=== PATIENT | male | born 1945 | race Caucasian/White ===

== ENCOUNTER 2016-06-01 20:41 | Inpatient (IN) | payer MEDICARE, OTHER ==
--- NOTE | ~2016-06-01 | EKG ---
PATIENT: KENNEDI AU UNIT #: [id number] Ventricular Rate: 60 BPM Atrial Rate: 68 BPM QRS Duration: 184 ms Q-T Interval: 500 ms QTC Calculation(Bezet): 500 ms Calculated R [place]: -78 degrees Calculated T [place]: 85 degrees Diagnosis Line: Electronic ventricular pacemaker Diagnosis Line: When compared with ECG of 25-APR-2012 12:22, Diagnosis Line: Wide QRS rhythm has replaced Electronic Diagnosis Line: ventricular pacemaker Diagnosis Line: Confirmed by JOHN LOPEZ MD ([id number]) on 06/03/2016 Diagnosis Line: 11:13:01 AM INTERPRETING MD: JESSICA BAEZ
--- NOTE | ~2016-06-01 | EKG ---
PATIENT: KENNEDI AU UNIT #: [id number] Ventricular Rate: 60 BPM Atrial Rate: 90 BPM QRS Duration: 192 ms Q-T Interval: 502 ms QTC Calculation(Bezet): 502 ms Calculated R [place]: -65 degrees Calculated T [place]: 114 degrees Diagnosis Line: Electronic ventricular pacemaker Diagnosis Line: When compared with ECG of 01-JUN-2016 20:19, Diagnosis Line: (unconfirmed) Diagnosis Line: No significant change was found Diagnosis Line: Confirmed by JOHN LOPEZ MD ([id number]) on 06/03/2016 Diagnosis Line: 6:20:37 PM INTERPRETING MD: JESSICA BAEZ
--- NOTE | ~2016-06-01 | EKG ---
PATIENT: KENNEDI AU UNIT #: [id number] Ventricular Rate: 64 BPM Atrial Rate: 93 BPM QRS Duration: 190 ms Q-T Interval: 486 ms QTC Calculation(Bezet): 501 ms Calculated R [place]: -78 degrees Calculated T [place]: 99 degrees Diagnosis Line: Electronic ventricular pacemaker Diagnosis Line: Left axis deviation Diagnosis Line: Abnormal ECG Diagnosis Line: When compared with ECG of 02-JUN-2016 13:06, Diagnosis Line: (unconfirmed) Diagnosis Line: No significant change was found Diagnosis Line: Confirmed by WALLY KRISHNA MD ([id number]) on 06/05/2016 Diagnosis Line: 5:49:48 PM INTERPRETING MD: TOMI BAEZ
--- NOTE | ~2016-06-01 | HP ---
Unit #: [id number] #: [id number] Patient: KENNEDI AU [id number] [address] [place], [place] [address] [id number] MR#: [id number] NAME: KENNEDI AU ROOM: 57612 Age: 70 Sex: M Admission Date: 06/02/2016 : 1945 Attending Physician: Ruth Ann Collins M.D. Primary Care Physician: Jasmin Kahn M.D. HISTORY AND PHYSICAL CHIEF COMPLAINT Intractable nausea, vomiting, diarrhea with metabolic acidosis and acute kidney injury along with accelerated hypertension. HISTORY OF PRESENT ILLNESS This 70-year-old male with CAD and normal LV function status post permanent pacemaker, hypertension, AODM, is admitted for diarrhea. The patient was in his usual state of health until three days prior to admission when he developed nonbloody diarrhea along with nausea, vomiting and generalized abdominal discomfort and burning. The patient has not been able to take down his medicines for the past couple of days. The patient denies true chest pain with the above, although has been experiencing perhaps some increased shortness of breath. He presented to this emergency department last evening with a blood pressure of 188/73, acute kidney injury and metabolic acidosis. In the ER, he was bolused with normal saline, given 4 mg of Zofran, 20 mg of IV Bentyl along with aspirin. Cardiac enzymes were drawn and were indeterminate, although the patient denies chest pain. The patient has been admitted similarly to this facility for diarrhea and acute kidney injury. In March, he underwent colonoscopy and multiple polyps removed including a 3 cm large polyp with pathology showing tubular adenoma. PAST MEDICAL HISTORY 1. CAD status post three vessel CABG in 1999 after a PCI and stent 1997. The last Cardiolite stress test, 2011, showed prior apical and inferior wall infarcts but no april-infarct ischemia. Ejection fraction was 55%. 2. History of AFib/flutter for which the patient underwent cardioversion in the past and finally required a permanent pacemaker for high-degree AV block. The patient takes Eliquis. 3. Hypertension. 4. AODM x13 years. 5. Hyperlipidemia. 6. Previous EGD revealing gastritis. 7. Colonoscopy 03/2016 revealing multiple polyps which were removed. 8. Admissions for acute kidney injury with nausea, vomiting, diarrhea and metabolic acidosis. 9. Right inguinal hernia repair. 10. Cholecystectomy. SOCIAL HISTORY Unit #: [id number] #: [id number] Patient: KENNEDI AU The patient lives with his and two children, lifelong nonsmoker, seldom drinks alcohol. FAMILY HISTORY Hypertension, CAD, malignancy. ALLERGIES Penicillin and codeine. HOME MEDICATIONS 1. Eliquis 5 mg b.i.d. 2. Aspirin 81 mg daily. 3. Neurontin 300 mg b.i.d. 4. Glucotrol XL 10 mg b.i.d. 5. Imdur 60 mg daily. 6. Prinivil 5 mg daily. 7. Glucophage 1,000 mg b.i.d. 8. Toprol XL 100 mg daily. 9. Zantac 150 mg b.i.d. 10. Zocor 40 mg q.h.s. 11. Januvia 100 mg daily. Again, the patient has been unable to keep down his medicines for the past couple of days. REVIEW OF SYSTEMS Nausea, vomiting, diarrhea, generalized abdominal discomfort and burning, CAD, above-mentioned surgeries, AFib/flutter, hypertension, AODM, hyperlipidemia, polyps removed. All other systems were reviewed and are negative. PHYSICAL EXAMINATION GENERAL APPEARANCE: A somewhat ill-appearing, pale, 70-year-old male. VITAL SIGNS: Temperature 98.9. Pulse 61. Respirations 29. Blood pressure 188/73. O2 saturation 99% on room air. HEENT: Eyes: PERRLA. Extraocular muscles are intact. Pharynx is benign. NECK: Supple without adenopathy or thyromegaly. CHEST: Clear. CARDIAC: Normal S1, S2. Soft systolic murmur. ABDOMEN: Bowel sounds are present. Mild generalized abdominal tenderness without rebound, guarding. No hepatosplenomegaly or masses. EXTREMITIES: Without cyanosis, clubbing or edema. Pedal pulses are present but diminished. No ulcers on the feet. NEUROLOGIC: The patient is awake, alert, oriented. Cranial nerves are intact. Equal strength throughout. DIAGNOSTIC STUDIES LABORATORY: Hematocrit 46.3, WBC count 14.7, normal platelet count. SMA-12: Glucose 349, BUN 54, creatinine 1.9 up from a BUN of 21, creatinine of 1.4 03/11/2016, CO2 13, anion gap 18. Initial troponin 0.1. Second troponin 0.14. Urinalysis: Trace protein, positive glucose. CARDIOVASCULAR: EKG shows a paced ventricular rhythm, rate 60. ASSESSMENT 1. Intractable nausea, vomiting, diarrhea with similar admissions in the past. 2. Metabolic acidosis likely multifactorial secondary to diarrhea, Unit #: [id number] #: [id number] Patient: KENNEDI AU Glucophage and acute kidney injury. 3. Accelerated hypertension, unable to keep down home medicines. 4. Acute on chronic kidney disease. 5. CAD status post three vessel CABG with normal ejection fraction and indeterminate troponin, although without definite chest pain. 6. Hyperlipidemia. PLAN 1. Stool cultures. 2. IV fluids with bicarb. Check ABG. 3. Sliding scale insulin and hold oral hyperglycemia. 4. Blood pressure control. 5. Proton pump inhibitor. 6. Nitro paste, aspirin, continue usual cardiac medications and repeat Cardiac enzymes. 7. SCDs for DVT prophylaxis. Dictated by Alisa Andersen/lacey TD: 06/02/2016 07:19 JOB #: [id number] HISTORY AND PHYSICAL X Ruth Ann Collins MD X HISTORY AND PHYSICAL
--- NOTE | ~2016-06-01 | CO ---
Unit #: [id number] #: [id number] Patient: KENNEDI SCHMIDT [id number] [address] [place], [place] [address] [id number] MR#: [id number] NAME: KENNEDI SCHMIDT ROOM: 317 Age: 70 Sex: M Admission Date: 06/02/2016 : 1945 Attending Physician: Mignon Cash M.D. Primary Care Physician: Jasmin Kahn M.D. Consultation Date: 06/02/2016 CONSULTATION REPORT REASON FOR CONSULTATION Elevated troponin. HISTORY OF PRESENT ILLNESS This is a 70-year-old white male with known history of having coronary artery disease, previous CABG back in 1999, prior to that had some stents. Had a stress test back in 2011 that did not show any ischemia, ejection fraction 55%. Has a history of atrial fibrillation/atrial flutter, on Eliquis, hypertension, diabetic, has a pacemaker. He came to the emergency room with persistent nausea, vomiting, diarrhea and abdominal pain. He has been having these symptoms worsening for about two to there days. He has had similar episodes in the past. He presented to the hospital this past March. Had a colonoscopy and Dr. Diamond removed a polyp. Possibly some gastroenteritis. Patient states he has been unable to hold down any of his medications for a couple of days and blood sugars have been running high. He denies any chest pain, pain in his neck, bilateral jaws, shoulders, arms or elbow. He denies any palpitations. No dizziness, presyncope or syncope. No increased lower extremity edema. He denies any cough, fever or chills. He did have some slight shortness of breath with the nausea, vomiting, diarrhea which he said that was a little unusual but denies paroxysmal nocturnal dyspnea or orthopnea. In the emergency room, the patient's blood pressure was 188/73, heart rate 61, respirations 29, temperature 98.9, O2 sats 99% on room air. The patient's EKG shows ventricular paced rhythm, underlying appears to be atrial fib. Patient's initial labs - WBC 14.7, glucose of 349, BUN 54, creatinine 1.9. Initial troponin 0.1, second troponin was 0.14, then 0.42 this morning with a percentage of MB 6.0. The patient has been admitted with intractable nausea, vomiting or diarrhea with similar admissions in the past. Cardiology has been asked to assist with evaluation and management due to the elevated troponin. The patient was started on IV fluids, kept NPO. He did have an amp of sodium bicarb. On his ABGs, his pH is 7.320 with a pCO2 of 33.9. The patient did have one amp of sodium bicarb added to his fluids. Patient also given Zofran and morphine p.r.n. for pain and given a dose of IV Protonix and IV Reglan and a dose of Bentyl IM. Patient with an elevated troponin and was given aspirin 325 p.o. and started on nitro paste. Cardiology consult to assist with evaluation and management. PAST MEDICAL HISTORY 1. Previous FL, status post PCI and stent in 1997. In 1999 had three vessel coronary artery bypass graft. 2. Last Lexiscan Cardiolite stress test 10/22/11 revealed prior apical and mid inferior wall FL, medium size. No april-infarction. Unit #: [id number] #: [id number] Patient: KENNEDI SCHMIDT Reversible ischemia with ejection fraction of 55%. 3. 10/22/11 2D echo - LVEF is greater than 55%, mild mitral regurgitation. 4. History of atrial fibrillation/atrial flutter, history of DC cardioversion, on Eliquis. 5. Hypertension. 6. Hyperlipidemia. 7. Diabetes mellitus type 2. 8. Permanent pacemaker. 9. Smoker. 10. Active with [facility], Dr. Patel. PAST SURGICAL HISTORY 1. Permanent pacemaker. 2. Three vessel coronary artery bypass graft in 1999. Prior to that, in 1997 had a PCI and stent, details unavailable. 3. Hernia repair. 4. Cholecystectomy. 5. Colonoscopy with a polypectomy 03/2016. Also had hemoclips placed at the time of the colonoscopy. 6. EGD 2011 showed distal esophagitis and mild gastritis. 7. Right inguinal hernia repair. HOME MEDICATIONS 1. Eliquis 5 mg p.o. twice daily. 2. Aspirin 81 mg p.o. daily. 3. Neurontin 300 mg p.o. twice daily. 4. Rocaltrol XL 10 mg p.o. twice daily. 5. Imdur 60 mg, one tablet daily. 6. Prinivil 5 mg p.o. daily. 7. Glucophage 1000 mg p.o. twice daily. 8. Toprol-XL 100 mg p.o. daily. 9. Zantac 150 mg p.o. twice daily. 10. Zocor 40 mg p.o. q. h.s. 11. Januvia 100 mg p.o. daily. ALLERGIES Penicillin and codeine. SOCIAL HISTORY The patient lives with his spouse and two children. He has been a lifelong nonsmoker. No alcohol or illicit drug abuse. FAMILY HISTORY Both his parents had a pacemaker. They in their 70s of unknown causes. Siblings were in generally well health. REVIEW OF SYSTEMS See details in HPI. PHYSICAL EXAMINATION GENERAL: On exam, Mr. Schmidt is a 70-year-old white male in no acute respiratory distress. He is awake, alert and oriented. VITAL SIGNS: Blood pressure is 154/72, heart rate 66, respirations 16, temperature 97.9, O2 sats 100% on room air. NECK: Trachea midline. No thyromegaly or lymphadenopathy. Normal carotid upstrokes. No jugular venous distention. HEART: S1, S2. Regular rate and rhythm. No clicks, murmurs or rubs. Unit #: [id number] #: [id number] Patient: KENNEDI SCHMIDT LUNGS: Bilaterally clear throughout. No wheezes, rales or rhonchi. ABDOMEN: Slightly obese. Tender in lower quadrant areas. Positive bowel sounds present. EXTREMITIES: Pedal pulses are palpable. No pedal edema. DIAGNOSTIC STUDIES LABORATORY: ABGs - pH is 7.320, pCO2 33.9, pO2 86.5, and O2 sats 95.6 on room air. Glucose on admission was 349, BUN 54, creatinine 1.9. Today's BUN is 49, creatinine 1.6, eGFR is 45.4, sodium 134, potassium 4.3, chloride 105, CO2 19, calcium 8.4, total protein 6.8, albumin 3.8, bili total 0.6, AST 22, ALT 18, alkaline phos. is 62. Amylase is 29, lipase is 29. WBC 13.3, hemoglobin 13.9, hematocrit 42.3 and platelets 228. Initial cardiac enzymes - CK MB is 7.0, troponin is 0.10. CK MB 8.5, troponin 0.14. Repeat cardiac enzymes - CK total 177, MB 10.6, percentage of MB 6.0 and troponin 0.28. Urinalysis - trace protein, 250 glucose, 0.2 urobilinogen. Stool specimen pending. IMAGING: Chest x-ray is pending. CARDIOVASCULAR: EKG shows ventricular paced rhythm, underlying A-fib, left ventricular hypertrophy. IMPRESSION 1. Nausea, vomiting, diarrhea, abdominal pain, questionable etiology. 2. Acute kidney injury. 3. Elevated troponin peaked at 0.42. 4. History of coronary artery disease: Previous coronary artery bypass graft back in 1999, latest stress test back in 2011. No reversible ischemia on the stress test with ejection fraction 55%. 5. History of atrial fib/flutter, on Eliquis. 6. Hypertension. 7. Diabetes mellitus type 2. 8. Hyperlipidemia. 9. Permanent pacemaker. 10. Left ventricular ejection fraction of greater than 55% on 2D echo 10/2011. Mild mitral regurgitation. PLAN 1. Cardiology consult to assist with evaluating. Patient had a troponin of 0.42. On exam, there are no signs or symptoms of acute congestive heart failure or unstable angina. Patient's elevated troponin may be secondary to his gastroenteritis and acute kidney injury. Will repeat if it trends down. Will repeat a stress test since it has been four years since he had a stress test. The patient is active with Dr. Patel with [facility]. He says he has been stable. He has him on Eliquis for his A-fib. Patient has been restarted back on his cardiac medications which include the aspirin, Imdur, Toprol XL and statin. We are holding his lisinopril due to patient having acute kidney injury. May be restarted before he is discharged if his creatinine goes back to baseline. 2. The patient is on IV fluids and D5 half normal with one amp of bicarb at 125 mL/hour. Obtain a fasting lipid profile and TSH in the Unit #: [id number] #: [id number] Patient: KENNEDI SCHMIDT morning and evaluate. 3. On exam, there are no signs or symptoms of acute congestive heart failure. 4. Awaiting stool specimen results. 5. Further recommendations pending per Dr. Ceron. Besides statin, nitrate, aspirin, and beta jarred, patient is on Eliquis for anticoagulation. There is no evidence, signs or symptoms of any bleeding. Hemoglobin and hematocrit stable. Thank you very much for allowing us to assist in his care. Dictated by... Hortensia Mccracken A.P.R.N. for Alisa Valentine/gosia TD: 06/03/2016 10:20 JOB #: [id number] CONSULTATION REPORT X Hortensia Mccracken APRN X CONSULTATION REPORT
--- NOTE | ~2016-06-01 | TH ---
Unit #: [id number] #: [id number] Patient: KENNEDI AU [id number] [address] [address] [id number] I MR#: [id number] NAME: KENNEDI AU : 1945 SEX: M STUDY DATE/TIME: 06/03/2016 UNIT: C3A PCU ROOM: [facility] STUDY DESCRIPTION: Lexiscan Cardiolite stress Attending Physician: Mignon Cash M.D. Primary Care Physician: Jasmin Kahn M.D. CARDIOLOGY REPORT EXAM Lexiscan Cardiolite stress test, nuclear portion. PROCEDURE Using technetium-99m labeled Cardiolite, rest and stress SPECT images were obtained. Multiple SPECT images were obtained in various views including horizontal and vertical long axis and short axis views of the left ventricle. Images were obtained by gated SPECT method. Patient was administered 11.62 mCi of Cardiolite at rest. Patient was administered 32.4 mCi of Cardiolite after Lexiscan infusion was completed. On the stress images, there is a small area of mild decreased isotope activity in the inferoapical area. The rest images also show a small area of decreased isotope activity inferoapically. Comparing rest and stress images, there is no stress induced ischemia noted. There is a small area of predominantly fixed defect seen inferoapically consistent with old myocardial infarction. The left ventricular ejection fraction is calculated to be 59%. There is septal hypokinesis seen. CONCLUSIONS 1. No obvious stress induced ischemia noted. 2. There is a small area of predominantly fixed defect seen inferoapically, most likely consistent with old myocardial infarction. 3. The left ventricular ejection fraction is calculated to be 59%. 4. There is septal hypokinesis seen. 5. The left ventricular cavity is mildly dilated, both at rest and post stress. 6. Clinical correlation is requested. Dictated by... Alisa Valentine TD: 06/03/2016 15:42 JOB #: [id number] Unit #: [id number] #: [id number] Patient: KENNEDI AU CARDIOLOGY REPORT X Melissa Ceron MD <ELECTRONICALLY SIGNED> 10/23/16 1428 CARDIOLOGY REPORT
[~2016-06-01 20:41] MED LIST: ASPIRIN EC81 M1 PO; ASPIRIN PO; BAYER ASPIRIN325 M1 PO; BENTYL20 MG PO; CENTRUM PO; ELIQUIS5 MG PO; FISH OIL 1,0001 CAP PO; FISH OIL 1,0001 EAC1 PO; FLAGYL PO; GABAPENTIN300 M2 PO; GLIPIZIDE10 MG PO; GLUCOPHAGE500 MG PO; GLUCOTROL PO; GLUCOTROL XL10 MG PO; GLUCOTROL10 MG PO; HYDROCODON-ACE1 EAC7 PO; IMDUR PO; IMDUR-ER60 M1 PO; IMDUR-ER60 MG PO; JANUVIA PO; JANUVIA50 MG PO; LEVOFLOXACIN500 MG PO; LISINOPRIL PO; LISINOPRIL5 MG PO; LOPID600 MG PO; LORTAB 7.5-5001 TAB PO; LORTAB 7.51 TAB 7.5/ PO; METFORMIN HCL1000 M1 PO; METFORMIN PO; METOPROL PO; METOPROLOL SUC100 MG PO; MULTI VITAMIN1 EACH PO; NAPROSYN125 MG/5 M PO; PLAVIX PO; PROBIOTIC250 MG PO; REQUIP1 MG PO; SIMVASTATIN40 MG PO; ST. JOSEPH ASP325 MG PO; TOPROL XL PO; TOPROL XL100 MG PO; ULTRAM PO; VITAMIN C PO; VITAMIN C1000 M1 PO; VITAMIN C1000 M2 PO; ZANTAC150 MG PO; ZESTRIL5 MG PO; ZOCOR PO; ZOFRANODT PO; ZOLOFT PO
[2016-06-01 21:09] LABS: BASOPHIL% 0.2 % (0-2.5); HEMATOCRIT 46.3 % (38.0-50.0); HEMOGLOBIN 15.2 gm/dL (13.0-16.0); LYMPHOCYTE# 0.7 X10e3 (1.0-3.5); LYMPHOCYTE% 5.1 % (17.0-45.0); MEAN CELL VOLUME 89.5 FL (83-96); MEAN CORPUSCULAR HEMOGLOBIN 29.3 PG (28-34); MEAN CORPUSCULAR HGB CONC 32.8 g/dL (30-36); MEAN PLATELET VOLUME 7.9 FL (6.5-11.5); MONOCYTE# 0.4 X10e3 (0-1.0); MONOCYTE% 2.6 % (3.0-12.0); NEUTROPHIL# 13.6 X10e3 (1.5-7.1); NEUTROPHIL% 92.1 % (40-75); PLATELET COUNT 289 X10e3 (140-420); RED BLOOD COUNT 5.17 X10e (3.90-5.60); RED CELL DISTRIBUTION WIDTH 14.1 % (11.0-15.5); WHITE BLOOD COUNT 14.7 X10e3 (4.0-10.5)
[2016-06-01 21:10] LABS: DIFF IND NO
[2016-06-01 21:19] LABS: POC - TROPONIN 0.1 ng/mL (<=0.05)
[2016-06-01 21:36] LABS: ALBUMIN SERUM 4.8 g/dL (3.5-5.0); BILIRUBIN, DIRECT 0.2 mg/dL (0.0-0.2); BILIRUBIN,INDIRECT 0.7 mg/dL (0.0-0.9); BILIRUBIN,TOTAL 0.9 mg/dL (0.2-2.0); BUN/CREATININE RATIO 28.42; CALCIUM SERUM 9.2 mg/dL (8.4-10.2); CREATININE SERUM 1.9 mg/dL (0.6-1.4); GLOM FILT RATE Estimated 37.2 mL/min (>60); POTASSIUM 4.9 mmol/L (3.5-5.1); PROTEIN TOTAL SERUM 8.3 g/dL (6.0-8.3)
[2016-06-01 22:50] LABS: URINE SOURCE CLEAN CATCH
[2016-06-01 22:56] LABS: URINE APPEARANCE CLEAR; URINE BILIRUBIN NEG (NEG); URINE BLOOD NEG (NEG); URINE COLOR YELLOW; URINE GLUCOSE 250 MG/DL (NEG); URINE KETONE TRACE (NEG); URINE LEUKOCYTE ESTERASE NEG (NEG); URINE NITRATE NEG (NEG); URINE PROTEIN TRACE (NEG); URINE SPECIFIC GRAVITY 1.021 (1.003-1.035); URINE UROBILINOGEN 0.2 MG/DL (NEG)
[2016-06-01 23:01] LABS: CULTURE INDICATED? NO
[2016-06-01 23:38] LABS: POC - CKMB 8.5 ng/mL (0.0-7.9); POC - TROPONIN 0.14 ng/mL (<=0.05)
[2016-06-02] MEDS ORDERED: ASPIRIN EC81 M1 PO (00:28)
[2016-06-02] MEDS ORDERED: NEURONTIN300 MG PO (00:28)
[2016-06-02] MEDS ORDERED: ELIQUIS5 MG PO (00:28)
[2016-06-02] MEDS ORDERED: GLUCOTROL XL10 MG PO (00:29)
[2016-06-02] MEDS ORDERED: IMDUR-ER60 M3 PO (00:30)
[2016-06-02] MEDS ORDERED: PRINIVIL5 MG PO (00:30)
[2016-06-02] MEDS ORDERED: METFORMIN PO (00:31)
[2016-06-02] MEDS ORDERED: TOPROL XL PO (00:31)
[2016-06-02] MEDS ORDERED: SIMVASTATIN40 MG PO (00:32)
[2016-06-02] MEDS ORDERED: ACID CONTROL150 MG PO (00:32)
[2016-06-02] MEDS ORDERED: JANUVIA100 MG PO (00:33)
[2016-06-02 04:06] LABS: ARTERIAL BLD GAS O2 SATURATION 95.6 % (90.0-100.0); ARTERIAL BLOOD GAS CARBOXY HB 0.3 %sat (0.0-9.0); ARTERIAL BLOOD GAS HCO3 17.5 mmol/L; ARTERIAL BLOOD GAS MET HB 0.7 %sat (0.0-2.0); ARTERIAL BLOOD GAS PCO2 33.9 mmHg (35.0-45.0); ARTERIAL BLOOD GAS PO2 86.5 mmHg (80.0-100)
[2016-06-02 04:10] LABS: ARTERIAL BLOOD GAS ART SITE RIGHT RADIAL; ARTERIAL BLOOD GAS DELIVERY ROOM AIR; ARTERIAL DRAW? YES
[2016-06-02 07:55] LABS: BASOPHIL# 0.1 X10e3 (0-0.3); BASOPHIL% 0.7 % (0-2.5); EOSINOPHIL% 0.1 % (0.0-7.0); HEMATOCRIT 42.3 % (38.0-50.0); HEMOGLOBIN 13.9 gm/dL (13.0-16.0); LYMPHOCYTE# 1.8 X10e3 (1.0-3.5); LYMPHOCYTE% 13.6 % (17.0-45.0); MEAN CELL VOLUME 89.1 FL (83-96); MEAN CORPUSCULAR HEMOGLOBIN 29.2 PG (28-34); MEAN CORPUSCULAR HGB CONC 32.7 g/dL (30-36); MEAN PLATELET VOLUME 8.1 FL (6.5-11.5); MONOCYTE% 7.5 % (3.0-12.0); NEUTROPHIL# 10.4 X10e3 (1.5-7.1); NEUTROPHIL% 78.1 % (40-75); PLATELET COUNT 228 X10e3 (140-420); RED BLOOD COUNT 4.75 X10e (3.90-5.60); RED CELL DISTRIBUTION WIDTH 14.2 % (11.0-15.5); WHITE BLOOD COUNT 13.3 X10e3 (4.0-10.5)
[2016-06-02 07:57] LABS: DIFF IND NO
[2016-06-02 08:29] LABS: ALBUMIN SERUM 3.8 g/dL (3.5-5.0); BILIRUBIN,TOTAL 0.6 mg/dL (0.2-2.0); BUN/CREATININE RATIO 30.62; CALCIUM SERUM 8.4 mg/dL (8.4-10.2); CREATININE SERUM 1.6 mg/dL (0.6-1.4); GLOM FILT RATE Estimated 45.4 mL/min (>60); POTASSIUM 4.3 mmol/L (3.5-5.1); PROTEIN TOTAL SERUM 6.8 g/dL (6.0-8.3)
[2016-06-02 08:51] LABS: MB 10.6 ng/ml
[2016-06-02 15:39] LABS: %MB 5.9 % (0.0-4.0); MB 9.8 ng/ml
[2016-06-02 16:50] LABS: %MB 6.4 % (0.0-4.0); MB 9.6 ng/ml
[2016-06-03 07:46] LABS: CHOLESTEROL 119 mg/dL (0-200); HDL CHOLESTEROL 28 mg/dL (29-75); LDL CHOLESTEROL 69 mg/dL (-130); LDL/HDL RATIO 2 RATIO (0-4); TRIGLYCERIDES 112 mg/dL (10-160)
== END 2016-06-03 18:55 | disposition home or self-care (01) | DRG 683 ==
LOC: CED 20:41 → CEDOF 06-02 01:55 → C3A PCU 06-02 08:25
PROVIDERS: Emergency Medicine; Internal Medicine; Internal Medicine Cardiovascular Disease
PROC: B24BYZZ Ultrasonography of Heart with Aorta using Other Contrast (ICD-10-PCS; principal; 2016-06-03)
DX: N17.9 Acute kidney failure, unspecified (principal); E87.2 Acidosis; I48.92 Unspecified atrial flutter; E11.22 Type 2 diabetes mellitus with diabetic chronic kidney disease; I25.10 Atherosclerotic heart disease of native coronary artery without angina pectoris; Z95.1 Presence of aortocoronary bypass graft; Z95.0 Presence of cardiac pacemaker; R19.7 Diarrhea, unspecified; I48.91 Unspecified atrial fibrillation; Z79.01 Long term (current) use of anticoagulants; E78.5 Hyperlipidemia, unspecified; Z90.49 Acquired absence of other specified parts of digestive tract; Z88.0 Allergy status to penicillin; Z79.82 Long term (current) use of aspirin; Z79.84 Long term (current) use of oral hypoglycemic drugs; I12.9 Hypertensive chronic kidney disease with stage 1 through stage 4 chronic kidney disease, or unspecified chronic kidney disease; I25.2 Old myocardial infarction; I34.0 Nonrheumatic mitral (valve) insufficiency; N18.3 Chronic kidney disease, stage 3 (moderate)
CPT/HCPCS: 36415; 36600; 78452; 80048; 80053; 80061; 80076; 81003; 82150; 82550; 82553; 82803; 82947; 83690; 84443; 84484; 85025; 93005; 93017; 93306; 96361; 96372; 96374; 99285; A9500; C9113; J0500; J1815; J2270; J2405; J2765; J2785; J3490

== ENCOUNTER 2016-06-16 02:09 | Observation (INO) | payer MEDICARE, OTHER ==
--- NOTE | ~2016-06-16 | CT71 ---
[facility] A Service of [facility] RADIOLOGY TEXT RESULTS PATIENT: KENNEDI AU LOCATION: [facility] 5606-02 : [birth year] UNIT #: [id number] AGE: [address]: Jeremi Hardwick MD SEX: M ORDER DR: [id number] [facility] [address]. [place], [place] [address] [id number] I MR#: [id number] Acc #: [id number] NAME: KENNEDI AU : 1945 SEX: M STUDY DATE/TIME: 06/16/2016 2:44 UNIT: CEDOF ROOM: 86566 STUDY DESCRIPTION: CT Head Wo Contrast Attending Physician: Jeremi Hardwick M.D. Ordering Physician: Abraham Pacheco D.O. Primary Care Physician: Jasmin Kahn M.D. MEDICAL IMAGING REPORT This report is preliminary unless electronic signature is present EXAM CT head without contrast. DATE 06/16/2016 at 0244 HISTORY 70-year-old male with confusion and dizziness for 2 days. Multiple falls. Forehead abrasion. Low blood sugar of 36. Additional history of diabetes, hypertension, and congestive heart failure. COMPARISON None TECHNIQUE This CT exam was performed with one or more of the following radiation dose reduction techniques: automatic exposure control, adjustment of mA and/or kV according to patient size, and iterative reconstruction. FINDINGS Dense intracranial carotid artery and vertebral artery calcifications are present. Dalal matter-white matter junction distinction is preserved without evidence of acute or evolving infarct. Probable tiny lacunar infarct in the left basal ganglia. No intracranial hemorrhage, mass lesion, mass effect, or midline shift. Mild hypodensities in the subinsular deep white matter thought to represent changes of chronic microvascular disease. Ventricular configuration is within normal limits. Mastoid air cells are clear. Major paranasal sinuses are clear. No displaced calvarial fractures identified. IMPRESSION Mild chronic microvascular disease changes. Mild intracranial carotid artery and vertebral artery calcifications. No acute intracranial [facility] A Service [facility] RADIOLOGY TEXT RESULTS PATIENT: KENNEDI AU LOCATION: [facility] 5606-02 : [birth year] UNIT #: [id number] AGE: [address]: Jeremi Hardwick MD SEX: M ORDER DR: findings. Dictated by... Ana Storey M.D. THIS IS AN ELECTRONICALLY VERIFIED REPORT Ana Storey M.D. at 06/16/2016 10:[address] [facility]/jinny TD: 06/16/2016 12:29 JOB #: [id number] MEDICAL IMAGING REPORT COPY
--- NOTE | ~2016-06-16 | DS ---
Unit #: [id number] #: [id number] Patient: KENNEDI AU [id number] [address] [place], [place] [address] [id number] MR#: [id number] NAME: KENNEDI AU ROOM: 563 Age: 70 Sex: M Admission Date: 06/16/2016 : 1945 Discharge Date: 06/17/2016 Attending Physician: Jeremi Hardwick M.D. Primary Care Physician: Jasmin Kahn M.D. DISCHARGE SUMMARY REASON FOR ADMISSION Frequent falls, hypoglycemia. HISTORY OF PRESENT ILLNESS/HOSPITAL COURSE Please see H and P for complete details. Essentially, the patient had several falls at home, he became lightheaded, dizzy, as well as confused. EMS services were called. The patient's blood sugar was noted to be in the 30s. He was given dextrose en route. While he was evaluated in the emergency room, his blood sugar was remained persistently low in the 30s despite aggressive measures as well as increased p.o. intake; therefore, he was admitted for the same. Upon further review, it was noted he had several frequent falls at home, he became lightheaded, dizzy as well as confused. In regard to the same in his prior history of pacemaker placement and underlying history of heart failure, we placed consultation, Dr. Gotti and associates for evaluation. His pacemaker was interrogated while he was here and appeared to be functioning normal. The patient did not appear to be volume overloaded. We did decrease his Toprol from 100 mg p.o. daily down to 50 mg p.o. daily. His blood pressure did remain stable. It seems likely that increased levels of beta jarred, which may have caused bradycardia may have led to some of his symptoms of dizziness as well as falling. All of his diabetic medications including Januvia, metformin, and Glucotrol were placed on hold and he was maintained on IV fluids including dextrose overnight. His blood sugars remained in the mid 100s. At the time of discharge, we will discharge him home on metformin 500 mg on a daily basis. His other medications will be discontinued. His Toprol will be decreased to 50 mg on a daily basis. I will add lisinopril 5 mg for appropriate renal protection secondary to his prior history of diabetes. Plans have been reviewed with the patient. He is to follow up with PCP in approximately 7 to 10 days post discharge. PT and OT Services have cleared him as well prior to discharge. He did undergo a CT head through this hospital course, which was negative. His ultrasound of his carotid blood vessels is currently pending and that Unit #: [id number] #: [id number] Patient: KENNEDI AU result may be followed as an outpatient with his PCP. FINAL DISCHARGE DIAGNOSES 1. Frequent falls. 2. Dizziness likely secondary to combination of persistent hypoglycemia as well as bradycardia and/or hypotension. 3. Prior history of hypertension. 4. Diabetes type 2. 5. Hyperlipidemia. 6. Prior history of cardiac arrhythmia, I believe sick sinus syndrome, status post pacemaker placement. 7. Atrial fibrillation history, on chronic anticoagulation with Eliquis. 8. Moderate mitral regurgitation. 9. Angina, stable. 10. Coronary artery disease with prior history of coronary artery bypass grafting. DISCHARGE MEDICATIONS Eliquis 5 mg p.o. b.i.d., Glucophage 500 mg p.o. daily, Toprol-XL 50 mg p.o. daily, Zocor 40 mg p.o. daily, Zantac 150 mg p.o. b.i.d., aspirin 81 mg p.o. daily, Imdur ER 60 mg p.o. daily. DIAGNOSTIC STUDIES LABORATORY RESULTS: Discharge laboratory studies include a B12 level at 293. He will receive a B12 IM injection prior to discharge. This may be repeated as an outpatient through his primary care physician. Creatinine level at the time of discharge 1.2. Blood sugar 172. CBC showed hemoglobin of 11.4 at the time of discharge. TSH was assessed within normal range. DISCHARGE DISPOSITION Home. CONDITION Stable. Dictated by... Jeremi Hardwick M.D. CARLOS/pj TD: 06/18/2016 00:53 JOB #: [id number] DISCHARGE SUMMARY X Jeremi Hardwick MD X DISCHARGE SUMMARY
--- NOTE | ~2016-06-16 | EKG ---
PATIENT: KENNEDI AU UNIT #: [id number] Ventricular Rate: 62 BPM Atrial Rate: 49 BPM QRS Duration: 178 ms Q-T Interval: 488 ms QTC Calculation(Bezet): 495 ms Calculated R [place]: -76 degrees Calculated T [place]: 89 degrees Diagnosis Line: Ventricular-paced rhythm Diagnosis Line: Abnormal ECG Diagnosis Line: When compared with ECG of 03-JUN-2016 06:05, Diagnosis Line: Vent. rate has decreased BY 2 BPM Diagnosis Line: Confirmed by BRADEN MEJÍA MD ([id number]) on Diagnosis Line: 06/16/2016 11:28:17 AM INTERPRETING MD: ALFONZO BAEZ
--- NOTE | ~2016-06-16 | HP ---
Unit #: [id number] #: [id number] Patient: KENNEDI AU [id number] [address] [place], [place] [address] [id number] I MR#: [id number] NAME: KENNEDI AU ROOM: 563 Age: 70 Sex: M Admission Date: 06/16/2016 : 1945 Attending Physician: Jeremi Hardwick M.D. Primary Care Physician: Jasmin Kahn M.D. HISTORY AND PHYSICAL REASON FOR ADMISSION Frequent falls, ataxia, hypoglycemia. HISTORY OF PRESENT ILLNESS The patient is a 70-year-old male who was recently admitted to our hospital in June 2016 secondary to intractable nausea, vomiting and diarrhea and metabolic acidosis as well as acute kidney injury. Through that hospital course, he was appropriately treated and I believe he underwent stress test evaluation and/or further workup. Discharge summary is not present within the chart but I believe he was seen in consultation by Dr. Gotti. His diarrhea issue resolved. He underwent an echocardiogram as well as, I believe, a stress evaluation but I don't see any results currently in the system. He tells me that over the past several days, perhaps weeks, he has had frequent falls and/or presyncopal episodes. He also states that he feels weak, can only walk several steps. He came to the emergency room for further evaluation. When he was initially evaluated it was noted his blood sugar was 36 as noted by the EMS services. He did have mental status change as well as confusion upon admission as well. His current home situation involves that he does reside with his grandson. He was recently . He states that he takes all of his medications as prescribed but he does not check his blood sugars at home. He does not have a glucometer. He also tells me that approximately seven days ago he fell, had a syncopal episode where he developed a bruise on the front part of his forehead. He did not seek medical attention at that time as well. PAST MEDICAL HISTORY 1. Type 2 diabetes, on oral medications. 2. Hypertension. 3. Hyperlipidemia. 4. History of heart failure with undefined ejection fraction. 5. History of coronary artery disease. 6. History of CABG. 7. History of pacemaker placement. 8. Previous myocardial infarction, status post stent placement in 1997. 9. Three vessel coronary artery bypass in 1999. 10. Active tobacco use. PAST SURGICAL HISTORY Unit #: [id number] #: [id number] Patient: KENNEDI AU 1. Pacemaker. 2. CABG. 3. Hernia. 4. Cholecystectomy. 5. Colonoscopy with polypectomy in March 2016. 6. EGD in 2011. 7. Right inguinal hernia repair. CURRENT HOME MEDICATIONS 1. Glucophage. 2. Toprol. 3. Ranitidine. 4. Simvastatin. 5. Januvia. 6. Imdur. 7. Glucotrol. 8. Neurontin. 9. Aspirin. 10. Eliquis. ALLERGIES No known drug allergies. SOCIAL HISTORY Patient resides at home with his two children. He denies any illicit drug use; however, urine tox is positive for marijuana. FAMILY HISTORY Both his parents had a cardiac arrhythmia, pacemaker placement. REVIEW OF SYSTEMS Please see HPI. Twelve point otherwise negative except for those positives noted in the HPI. PHYSICAL EXAMINATION VITAL SIGNS: Temperature on admission 97.5, pulse 60, respiratory rate 16, blood pressure 156/84. GENERAL APPEARANCE: 70-year-old, frail, elderly gentleman lying in no acute distress. HEAD EXAM: Traumatic, bruise noted over the forehead approximately 2 x 4 cm. Mucous membranes appear dry. No JVD noted on neck exam, no carotid bruit. CVS: S1, S2 are audible. No murmur heard. Pacemaker present. Midline incision noted. RESPIRATORY EXAM: Generally clear. Diminished to auscultation. GI/ABDOMEN: Mild distention noted but nontender. EXTREMITIES: Lower extremity exam - bruising noted over lower extremity, several areas. Venous stasis changes noted but no edema. No calf tenderness. NEUROLOGICAL EXAM: The patient is A and O x3. He does have a slightly slower affect but he is alert and oriented x3 at the present time. DIAGNOSTIC STUDIES LABORATORY: Initial laboratory studies yield a glucose last checked at 39. Urine tox screen - positive marijuana. Unit #: [id number] #: [id number] Patient: KENNEDI AU INR 1.1. Urinalysis done and otherwise unremarkable. INITIAL ADMISSION DIAGNOSES 1. Mental status change, likely secondary to hypoglycemia from diabetic medications. 2. Ataxia. 3. Frequent falls. 4. Prior history of heart failure. 5. Pacemaker, I believe secondary to sick sinus syndrome. Details unclear. 6. Prior history of coronary artery disease. 7. Hypertension. 8. Hyperlipidemia. 9. Deconditioning. 10. Questionable medication compliance as he does not have a glucometer at home. PLAN Admit to telemetry floor, place in observation. Routine laboratory studies. PT/OT evaluation. Check CT head. Ultrasound of carotids. Obtain previous echo. Continue Accu-Cheks q.2. Discontinue all oral hypoglycemic medications. Leave on D5 one half normal saline at 75 mL for now in light of a prior history of heart failure. Social work/APS to evaluate home situation in consideration of his frequent falls and bruising. Further hospital course pending above. Dictated by Alisa Montes/gosia TD: 06/18/2016 08:28 JOB #: [id number] HISTORY AND PHYSICAL X Jeremi Hardwick MD X HISTORY AND PHYSICAL
--- NOTE | ~2016-06-16 | CR72 ---
[facility] A Service of [facility] & [facility] RADIOLOGY TEXT RESULTS PATIENT: KENNEDI AU LOCATION: [facility] 563-01 : 43 UNIT #: [id number] AGE: [address]: Jeremi Hardwick MD SEX: M ORDER DR: [id number] [facility] [address] [place], [place] [address] [id number] I MR#: [id number] Acc #: [id number] NAME: KENNEDI AU : 1945 SEX: M STUDY DATE/TIME: 06/16/2016 4:07 [id number] STUDY DESCRIPTION: CR Chest Single View Portable Attending Physician: Jeremi Hardwick M.D. Ordering Physician: Abraham Pacheco D.O. Primary Care Physician: Jasmin Kahn M.D. MEDICAL IMAGING REPORT This report is preliminary unless electronic signature is present EXAM AP portable chest DATE: 06/16/2016 04:07 HISTORY Shortness of breath with acute mental status changes, blood sugar level 36, weakness. Multiple falls. Symptoms began 2 days ago. COMPARISON AP portable chest 02/28/2013. FINDINGS Heart size appears slightly larger than on the 02/28/2013 examination, but there is no convincing evidence of pulmonary edema. Pulmonary vascular distribution is normal. No consolidation. No pleural effusion. No pneumothorax. CABG changes. Left chest wall pacemaker leads appear stable. Dictated by... Ana Storey M.D. THIS IS AN ELECTRONICALLY VERIFIED REPORT Ana Storey M.D. at 06/16/2016 10:25 PM [facility]/rudolph TD: 06/16/2016 12:36 JOB #: [id number] MEDICAL IMAGING REPORT COPY
--- NOTE | ~2016-06-16 | US37 ---
[facility] A Service of [facility] & [facility] RADIOLOGY TEXT RESULTS PATIENT: KENNEDI AU LOCATION: [facility] 563-01 : 43 UNIT #: [id number] AGE: [address]: Jeremi Hardwick MD SEX: M ORDER DR: [id number] [facility] [address] [place], [place] [address] [id number] I MR#: [id number] Acc #: [id number] NAME: KENNEDI AU : 1945 SEX: M STUDY DATE/TIME: 06/16/2016 11:58 UNIT: [facility] ROOM: [facility] STUDY DESCRIPTION: US Carotid W/Doppler Bilateral Attending Physician: Jeremi Hardwick M.D. Ordering Physician: Jeremi Hardwick M.D. Primary Care Physician: Jasmin Kahn M.D. MEDICAL IMAGING REPORT This report is preliminary unless electronic signature is present EXAM Carotid duplex scan, 06/16/2016 HISTORY Syncope FINDINGS The right common carotid artery has no significant plaque. There is a small amount of heterogeneous dense plaque in the right carotid bulb which extends up into the proximal internal and external carotid arteries. Peak systolic velocity in the mid right internal carotid artery is 71 cm/sec with an end-diastolic velocity of 23 cm/sec. The ICA/CCA ratio on the right is 0.9. Peak systolic velocity in the right external carotid artery is 72 cm/sec. The right vertebral artery is patent with antegrade flow. The left common carotid artery has no significant plaque. There is a small amount of heterogeneous plaque in the left carotid bulb which extends up into the proximal internal and external carotid arteries. Peak systolic velocity in the mid left internal carotid artery is 98 cm/sec with an end-diastolic velocity of 37 cm/sec. The ICA/CCA ratio on the left is 1.4. Peak systolic velocity in the left external carotid artery is 79 cm/sec. The left vertebral artery is patent with antegrade flow. IMPRESSION Small amount of plaque, but no significant stenosis (less than 50%) in the internal and external carotid arteries bilaterally. Patent vertebral arteries bilaterally with antegrade flow. Dictated by... Rashi Michele M.D. THIS IS AN ELECTRONICALLY VERIFIED REPORT [facility]. [facility] [place] Service of [facility] RADIOLOGY TEXT RESULTS PATIENT: KENNEDI AU LOCATION: [facility] 563-01 : 43 UNIT #: [id number] AGE: [address]: Jeremi Hardwick MD SEX: M ORDER DR: Rashi Michele M.D. at 06/17/2016 6:48 PM [facility]/jose TD: 06/17/2016 10:09 JOB #: [id number] MEDICAL IMAGING REPORT COPY
--- NOTE | ~2016-06-16 | CO ---
Unit #: [id number] #: [id number] Patient: KENNEDI AU [id number] [address] [place], [place] [address] [id number] I MR#: [id number] NAME: KENNEDI AU ROOM: 563 Age: 70 Sex: M Admission Date: 06/16/2016 : 1945 Attending Physician: Jeremi Hardwick M.D. Primary Care Physician: Jasmin Kahn M.D. Consultation Date: 06/16/2016 CONSULTATION REPORT REASON FOR CONSULTATION Hypoglycemia. HISTORY OF PRESENT ILLNESS This is a 70-year-old pleasant male with a very complex medical history, who presented to the emergency room for the hypoglycemia. He was seen by the EMS at home and his blood sugars were below in 36. He has a known history of type 2 diabetes mellitus and he has at home been taking the Glucotrol, Januvia, and metformin. As per the patient, he has not been feeling well over the last few days and he has not been eating much. Currently, the patient in the hospital has been on IV dextrose, his last blood sugar was above 100. All his oral hypoglycemics have been discontinued. PAST MEDICAL HISTORY Remarkable for the type 2 diabetes mellitus, hypertension, hyperlipidemia, pacemaker placement, and coronary artery disease with positive stent placement. PAST SURGICAL HISTORY Permanent pacemaker, history of CABG, cholecystectomy, EGD, and right hernia repair. HOME MEDICATIONS List was reviewed. Glucophage 1000 mg b.i.d., Januvia 100 mg daily, Glucotrol XL 10 mg b.i.d., Eliquis, Imdur, Toprol, and simvastatin. ALLERGIES Penicillin and codeine. SOCIAL HISTORY Lives with his spouse and two children and has been a lifelong nonsmoker. No alcohol or illicit drugs. FAMILY HISTORY The patient had a pacemaker. REVIEW OF SYSTEMS 10-point review of systems is completed. Please see HPI. The patient has no symptoms or complaints at this time. PHYSICAL EXAMINATION GENERAL: He is awake, alert, and oriented to time, place, and person. He is well nourished. Unit #: [id number] #: [id number] Patient: KENNEDI AU VITAL SIGNS: Afebrile, temperature 97.9; pulse 60; and blood pressure is 159/83. HEENT: EOMI. Pupils equally reactive to light. NECK: Supple. No thyromegaly noted. CHEST: Good air entry. CVS: Regular rhythm. No murmurs. ABDOMEN: Benign. Nontender and nondistended. Bowel sounds positive. EXTREMITIES: No edema. NEUROLOGIC: Nonfocal. SKIN: No skin rashes or ulcerations noted. DIAGNOSTIC STUDIES LABORATORY RESULTS: His labs were reviewed. CMP is within normal limits. Accu-Chek log is reviewed. The patient has been having recurrent hypoglycemias. This morning, the patient had a blood sugar of 39. ASSESSMENT 1. Type 2 diabetes mellitus with hypoglycemia secondary to the oral hypoglycemic agents and due to the poor p.o. intake. 2. Coronary artery disease, status post coronary artery bypass grafting and stent placement. 3. History of permanent pacemaker. PLAN Blood sugar has been stable. Now, I am going to continue his IV fluids, dextrose. Continue to hold his oral hypoglycemic agents. If the patient continues to have further recurrent episodes of hypoglycemia, we will consider the treatment with the octreotide or steroids. At this time, the patient has been eating well. We will continue to follow the patient for further treatment. Dictated by... Alisa Burgess/pj TD: 06/17/2016 15:13 JOB #: [id number] CONSULTATION REPORT X Meena Coronel MD X CONSULTATION REPORT
[~2016-06-16 02:09] MED LIST changes: +ACID CONTROL150 MG PO; +IMDUR-ER60 M3 PO; +JANUVIA100 MG PO; +NEURONTIN300 MG PO; +PRINIVIL5 MG PO
[2016-06-16 02:33] LABS: BASOPHIL# 0.1 X10e3 (0-0.3); BASOPHIL% 0.7 % (0-2.5); EOSINOPHIL# 0.1 X10e3 (0-0.7); EOSINOPHIL% 1.2 % (0.0-7.0); HEMATOCRIT 38.5 % (38.0-50.0); HEMOGLOBIN 12.2 gm/dL (13.0-16.0); LYMPHOCYTE# 1.6 X10e3 (1.0-3.5); LYMPHOCYTE% 18.1 % (17.0-45.0); MEAN CORPUSCULAR HEMOGLOBIN 28.9 PG (28-34); MEAN CORPUSCULAR HGB CONC 31.8 g/dL (30-36); MEAN PLATELET VOLUME 7.5 FL (6.5-11.5); MONOCYTE# 0.6 X10e3 (0-1.0); MONOCYTE% 6.8 % (3.0-12.0); NEUTROPHIL# 6.5 X10e3 (1.5-7.1); NEUTROPHIL% 73.2 % (40-75); PLATELET COUNT 168 X10e3 (140-420); RED BLOOD COUNT 4.23 X10e (3.90-5.60); RED CELL DISTRIBUTION WIDTH 14.7 % (11.0-15.5); WHITE BLOOD COUNT 8.9 X10e3 (4.0-10.5)
[2016-06-16 02:34] LABS: DIFF IND NO
[2016-06-16 02:43] LABS: POC - CKMB 2.9 ng/mL (0.0-7.9); POC - TROPONIN <0.05 ng/mL (<=0.05)
[2016-06-16 02:57] LABS: ALBUMIN SERUM 3.8 g/dL (3.5-5.0); ALKALINE PHOSPHATASE 62 U/L (32-92); ALT (SGPT) 23 U/L (10-40); AST (SGOT) 27 U/L (10-42); BILIRUBIN, DIRECT 0.2 mg/dL (0.0-0.2); BILIRUBIN,INDIRECT 0.4 mg/dL (0.0-0.9); BILIRUBIN,TOTAL 0.6 mg/dL (0.2-2.0); BLOOD UREA NITROGEN 17 mg/dL (9-23); CALCIUM SERUM 8.4 mg/dL (8.4-10.2); CARBON DIOXIDE 27 mmol/L (22-31); CHLORIDE 104 mmol/L (100-111); GLOM FILT RATE Estimated ABOVE60 mL/min (>60); GLUCOSE FASTING 75 mg/dL (70-110); POTASSIUM 3.7 mmol/L (3.5-5.1); PROTEIN TOTAL SERUM 6.5 g/dL (6.0-8.3); SODIUM 139 mmol/L (135-145)
[2016-06-16 04:19] LABS: POC - CKMB 2.1 ng/mL (0.0-7.9); POC - TROPONIN <0.05 ng/mL (<=0.05)
[2016-06-16 06:18] LABS: URINE SOURCE CLEAN CATCH
[2016-06-16 06:24] LABS: URINE APPEARANCE CLEAR; URINE BILIRUBIN NEG (NEG); URINE BLOOD NEG (NEG); URINE COLOR YELLOW; URINE GLUCOSE NORM (NORM); URINE KETONE NEG (NEG); URINE LEUKOCYTE ESTERASE NEG (NEG); URINE NITRATE NEG (NEG); URINE PH 6.5 (5-8); URINE PROTEIN NEG (NEG); URINE SPECIFIC GRAVITY 1.015 (1.003-1.035); URINE UROBILINOGEN NORM (NORM)
[2016-06-16 06:25] LABS: CULTURE INDICATED? NO
[2016-06-16 06:47] LABS: INR 1.1; PARTIAL THROMBOPLASTIN TIME 28.8 SECONDS (23.5-31.3); PROTHROMBIN TIME (PATIENT) 12.1 SECONDS (9.6-11.5)
[2016-06-16 06:52] LABS: AMPHETAMINE NEG (NEG); BARBITURATES NEG (NEG); BENZODIAZEPINES NEG (NEG); COCAINE NEG (NEG); MARIJUANA POS (NEG); OPIATES NEG (NEG); TRICYCLIC ANTIDEPRESSANTS NEG (NEG); U METHADONE NEG (NEG)
[2016-06-16 12:29] LABS: %MB 3.9 % (0.0-4.0); MB 4.4 ng/ml
[2016-06-16 20:22] LABS: %MB 3.9 % (0.0-4.0); MB 3.7 ng/ml
[2016-06-17 05:42] LABS: HEMATOCRIT 35.6 % (38.0-50.0); HEMOGLOBIN 11.4 gm/dL (13.0-16.0); MEAN CELL VOLUME 90.9 FL (83-96); MEAN CORPUSCULAR HEMOGLOBIN 29.2 PG (28-34); MEAN CORPUSCULAR HGB CONC 32.1 g/dL (30-36); MEAN PLATELET VOLUME 8.4 FL (6.5-11.5); RED BLOOD COUNT 3.92 X10e (3.90-5.60); RED CELL DISTRIBUTION WIDTH 14.6 % (11.0-15.5); WHITE BLOOD COUNT 7.5 X10e3 (4.0-10.5)
[2016-06-17 06:36] LABS: ALBUMIN SERUM 3.3 g/dL (3.5-5.0); ALKALINE PHOSPHATASE 45 U/L (32-92); ALT (SGPT) 16 U/L (10-40); AST (SGOT) 16 U/L (10-42); BILIRUBIN,TOTAL 0.6 mg/dL (0.2-2.0); BLOOD UREA NITROGEN 20 mg/dL (9-23); BUN/CREATININE RATIO 16.66; CALCIUM SERUM 8.3 mg/dL (8.4-10.2); CARBON DIOXIDE 27 mmol/L (22-31); CHLORIDE 104 mmol/L (100-111); CHOLESTEROL 130 mg/dL (0-200); CREATININE SERUM 1.2 mg/dL (0.6-1.4); GLOM FILT RATE Estimated ABOVE60 mL/min (>60); GLUCOSE FASTING 172 mg/dL (70-110); HDL CHOLESTEROL 32 mg/dL (29-75); LDL CHOLESTEROL 73 mg/dL ([, -130]); LDL/HDL RATIO 2 RATIO (0-4); POTASSIUM 4.5 mmol/L (3.5-5.1); PROTEIN TOTAL SERUM 5.7 g/dL (6.0-8.3); SODIUM 139 mmol/L (135-145); TRIGLYCERIDES 125 mg/dL (10-160)
[2016-06-17] MEDS ORDERED: LISINOPRIL5 MG PO (09:46)
[2016-06-17] MEDS ORDERED: ARTHRITIS PAIN650 M4 PO (10:15)
== END 2016-06-17 11:32 | disposition home or self-care (01) ==
LOC: CED 02:09 → CEDOF 11:00 → C5C 13:26
PROVIDERS: Emergency Medicine; Family Medicine
DX: E11.649 Type 2 diabetes mellitus with hypoglycemia without coma (principal); Z79.84 Long term (current) use of oral hypoglycemic drugs; I25.119 Atherosclerotic heart disease of native coronary artery with unspecified angina pectoris; Z95.1 Presence of aortocoronary bypass graft; Z95.5 Presence of coronary angioplasty implant and graft; I10 Essential (primary) hypertension; I65.23 Occlusion and stenosis of bilateral carotid arteries; I51.7 Cardiomegaly; G93.89 Other specified disorders of brain; E78.5 Hyperlipidemia, unspecified; Z79.01 Long term (current) use of anticoagulants; Z95.0 Presence of cardiac pacemaker; Z91.81 History of falling; Z90.49 Acquired absence of other specified parts of digestive tract; Z88.0 Allergy status to penicillin; Z88.5 Allergy status to narcotic agent
CPT/HCPCS: 36415; 70450; 71010; 80048; 80053; 80061; 80076; 80307; 81003; 82550; 82553; 82607; 82947; 83036; 84443; 84484; 85025; 85027; 85610; 85730; 93005; 93880; 94760; 97165; 99285; G0378; G8987-GO; G8988-GO; G8989-GO